=== PATIENT | female | born 1940 | race Caucasian/White ===

== ENCOUNTER 2020-02-12 12:42 | Inpatient (IN) ==
[~2020-02-12 12:42] MED LIST: TACROLIMUS ANHYDROUS 0.5 MG CAPSULE PO SCH
[2020-02-12 13:40] LABS: Hematocrit 28.7 % (37.0-47.0); Hemoglobin 8.9 gm/dL (12.5-16.0); Mean Cell Volume 81.1 fl (78-100); Mean Corpuscular Hemoglobin 25.1 pg (27-31); Mean Platelet Volume 8.9 fl (8-12.5); Neutrophil # 12.9 K/mm3 (1.3-6.0); Neutrophil % 76.2 % (42-75.0); Platelet Count 318 K/mm3 (150-450); Red Blood Count 3.54 M/mm3 (4.2-5.4); Red Cell Distribution Width 15.8 % (11.5-14.0); White Blood Count 16.9 K/mm3 (4.0-10.5)
[2020-02-12 14:01] LABS: Albumin * 2.8 gm/dl (3.4-5.0); BUN/Creatinine Ratio 17.9 (9.0-21.6); Bilirubin, Total 0.6 mg/dL (0.0-1.1); Ca. Corrected For Albumin 9.8 mg/dL (8.4-10.2); Calcium * 9.2 mg/dL (7.9-10.9); Carbon Dioxide 25.3 mmol/L (24-32.6); Potassium 4.3 mmol/L (3.4-4.6); Total Protein 7.7 gm/dL (6.2-8.2)
--- NOTE | 2020-02-12 14:22 | ERNOTE ---
Medical Problem HPI - Narrative Date of Service: 02/12/20 - General Chief Complaint: Fever Time Seen by Provider: 02/12/20 13:15 Source: patient Exam Limitations: no limitations - Immun/Allergies/Home Medications Immunizations: IMMUNIZATION HX Immunizations Up to Date Yes History of Influenza Vaccine Yes Hx Pneumococcal Vaccination Yes Allergies/Adverse Reactions: Allergies amoxicillin [Amoxicillin] Allergy (Severe, Verified 02/12/20 13:05) Hepatitis/liver failure nitrofurantoin [From Macrobid] Allergy (Verified 02/12/20 13:05) Hives nitrofurantoin macrocrystalline [From Macrobid] Allergy (Verified 02/12/20 13:05) Hives Penicillins Allergy (Verified 02/12/20 13:05) denosumab [From Prolia] Adverse Reaction (Severe, Verified 02/12/20 13:05) fever, chills Sulfa (Sulfonamide Antibiotics) Adverse Reaction (Intermediate, Verified 02/12/20 13:05) rash alendronate sodium Adverse Reaction (Unknown, Verified 02/12/20 13:05) fever Home Medications: HOME MEDICATIONS Aspirin [Aspirin Chewable] 81 mg PO DAILY 02/14/15 [Last Taken Unknown] cholecalciferol (vitamin D3) 50 mcg (2,000 unit) capsule 2,000 unit PO DAILY 05/17/18 [Last Taken Unknown] amlodipine 5 mg tablet 5 mg PO DAILY 05/10/19 [Last Taken Unknown] levothyroxine 75 mcg tablet 75 mcg PO DAILY@0700 #90 tab 07/20/19 [Last Taken Unknown] metoprolol succinate 100 mg tablet,extended release 24 hr 100 mg PO DAILY #90 tab 09/15/19 [Last Taken Unknown] everolimus (immunosuppressive) 0.5 mg tablet 0.5 mg PO BID tab 11/16/19 [Last Taken Unknown] ferrous sulfate 325 mg (65 mg iron) tablet 325 mg PO BID 11/16/19 [Last Taken Unknown] tacrolimus 0.5 mg capsule 0.5 mg PO QAM #30 cap 11/16/19 [Last Taken Unknown] ursodiol 250 mg tablet 250 mg PO TID tab 11/16/19 [Last Taken Unknown] - History of Present History Narrative: patient presents to ed with c/o fever for several days, 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 Timing: intermittent Severity: mild Modifying Factors - (Improves): Present: other - nothiing Modifying Factors - (Worsens): Present: other - nothing Review of Systems - Review of Systems Constitutional: Present: See HPI, fever, weakness, fatigue, malaise EYE: Present: no symptoms reported ENT: Present: no symptoms reported Respiratory: Present: no symptoms reported Cardiology: Present: no symptoms reported Gastrointestinal/Abdominal: Present: See HPI, diarrhea, eating less, drinking less Genitourinary: Present: no symptoms reported Musculoskeletal: Present: no symptoms reported Skin: Present: no symptoms reported Neurological: Present: no symptoms reported Endocrine: Present: no symptoms reported Hematologic/Lymphatic: Present: no symptoms reported Psych: Present: no symptoms reported All Other Systems: All systems neg except as marked Medical History (Last Reviewed 02/12/20 @ 13:06 by Eduarda Mora RN) Pyelonephritis (Acute) Biloma, extrahepatic, transplanted liver (Chronic) Immunocompromised (Chronic) Richard-Granados virus viremia (Acute) Acute cystitis (Acute) Cytomegalovirus (CMV) viremia (Chronic) Immunosuppression (Chronic) Cholestasis of transplanted liver (Resolved) Vitamin D deficiency (Chronic) Onset Date: 01/2017 Tubular adenoma of colon (Chronic) Onset Date: 01/2017 Osteoporosis (Chronic) Onset Date: 01/2017 Osteopenia (Chronic) Onset Date: Unknown Mild concentric left ventricular hypertrophy (LVH) (Chronic) Onset Date: 07/2016 Liver transplant recipient (Chronic) Onset Date: 01/2017 Iron deficiency anemia (Chronic) Onset Date: 01/2017 Hypothyroidism (Chronic) Onset Date: 01/2017 Hyperlipidemia (Chronic) Onset Date: Unknown Essential hypertension (Chronic) Onset Date: 01/2017 Diverticulosis of colon (Chronic) Onset Date: 01/2017 CKD (chronic kidney disease) stage 4, GFR 15-29 ml/min (Chronic) Onset Date: 01/2017 Cholestasis of transplanted liver (Chronic) Onset Date: 01/2017 Autoimmune hepatitis (Chronic) Onset Date: 01/2017 open liver transplant on 01/17/2015 for acute liver failure secondary to drug induced autoimmune hepatitis, complicated by bile duct stenosis fixed with Agnieszka-en-Y hepaticojejunostomy on 01/28/2015, 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 Anemia (Chronic) Onset Date: 01/2017 Allergic rhinitis (Chronic) Onset Date: 01/2014 Hypothyroidism (Chronic) Hyperlipidemia (Chronic) Fever (Acute) Surgical History: Surgical History (Last Reviewed 02/12/20 @ 13:06 by Eduarda Mora RN) Liver transplanted (Chronic) H/O cardiac catheterization Onset Date: 2011 H/O tubal ligation Onset Date: Unknown H/O tubal ligation Onset Date: Unknown History of appendectomy Onset Date: Unknown History of colon surgery Onset Date: Unknown bowel obstruction Liver transplanted Onset Date: 2014 OLT 01/17/2015 for CUSTODIAL secondary to drug induced AIH, which was complicated by bile duct stenosis, faixed with Agnieszka en Y hepaticojejunostomy on 01/01/2015 Surgical abdomen 1946 abdominal drain placement Onset Date: 03/2018 [facility] colonoscopy with biopsy Onset Date: 08/2009 tubular adenoma Family History: Family History (Last Reviewed 02/12/20 @ 13:06 by Eduarda Mora RN) Father , age 83 Asthma Gout Hypertension Myocardial infarction Lung disease Mother , age 86 Arthritis CVA (cerebral vascular accident) Diabetes Hypertension Social History: (Last Reviewed 02/12/20 @ 13:06 by Eduarda Mora RN) Social History: Marital status: current occupational status: retired Service: No Tobacco: Smoking Status: Never smoker Alcohol: alcohol intake: never Substance Use: substance use type: does not use Dietary Habits: caffeine: Yes caffeine comment: everyday Physical Exam - Physical Exam General Appearance: Present: mild distress, anxious Head Exam: Present: normal inspection, no evidence of injury Eye Exam: Normal inspection: bilateral, PERRL: bilateral, EOMI: bilateral Ears, Nose, Throat: Present: normal ENT inspection, normal pharynx Neck: Present: normal inspection, nontender Respiratory: Present: no respiratory distress, normal breath sounds, no accessory muscle use, chest nontender, lungs clear Cardiovascular/Chest: Present: regular rate, rhythm, no murmur, normal peripheral pulses Gastrointestinal/Abdominal: Present: tenderness Back Exam: Present: normal inspection, normal range of motion, no CVA tenderness, no vertebral tenderness Extremity Exam: Present: normal inspection, non-tender, normal range of motion, no edema Neurological Exam: Present: alert, oriented, normal mood/affect, no motor/sensory deficits Skin Exam: Present: normal color, warm/dry Lymphatic Exam: Present: no adenopathy Progress - Date and Time Seen: Date and Time: 02/12/20 16:46 patient unchanged, discussed results of lab and condition with dr hernandez and dr cardoza patient accepted for care at [facility] o dr ramírez accepting - Results and Orders Patient's Lab Results:: I have reviewed the patient's lab results. - Vital Signs Patient's Vital Signs:: I have reviewed the patient's vital signs. Vital Signs: Vital Signs 02/12/20 12:57 Temperature 37.3 C Pulse Rate 84 Respiratory Rate 14 Blood Pressure 123/65 O2 Sat by Pulse Oximetry 100 - EKG EKG #1 EKG: NSR - X-Ray X-Ray #1 X-Ray: chest Interpretation: Discd w/ radiologist - no acute process, abdomen no acute process - Progress/Reassessment Chief Complaint: Fever Progress:: Improved - Transfer of Care Expected Disposition: Admit Plan - Plan Plan: to admit Departure Clinical Impression: Urinary tract infection, Hypotension - Departure Disposition: Short Term Hospital Inpatient Condition: Serious Instructions: Urinary Tract Infection, Adult, [id number] Referrals: Ibis Mendiola MD [Primary Care Provider] -
[2020-02-12] MEDS ORDERED: NORMAL SALINE 1,000 ML IV ONE ×3 (15:05→17:07)
[2020-02-12 15:23] LABS: Urine Bilirubin Negative (NEGATIVE); Urine Blood 25 /ul (NEGATIVE); Urine Ketone Negative (NEGATIVE); Urine Nitrite Negative (NEGATIVE); Urine Protein 30 mg/dL (NEGATIVE); Urine Urobilinogen Normal (NORMAL); Urine pH 5.5 pH (5.0-7.0)
[2020-02-12 15:35] LABS: Urine Appearance Cloudy (CLEAR); Urine Bacteria 1+; Urine Color Yellow; Urine RBC 0-5 /hpf (0-5)
[2020-02-12] MEDS ORDERED: CIPROFLOXACIN IN 5 % DEXTROSE 400 MG/200 ML BAG IV SCH ×3 (16:00→18:45)
[2020-02-12] MEDS ORDERED: ACETAMINOPHEN 1,000 MG/100 ML BTL IV ONE (16:15)
--- NOTE | 2020-02-12 17:53 | HP ---
Chief Complaint - Chief Complaint Date of Service: 02/12/20 Time of Service: 17:23 Chief Complaint: Fever and weakness x2 days History of Present Illness: 79-year-old female with a past medical history of autoimmune hepatitis status p ost liver transplant in 2014, anemia, CKD stage IV, cholestasis of transplant and liver, hypertension, hyperlipidemia, hypothyroidism, iron deficiency anemia, osteoporosis presents from home with complaints of fever, and weakness for the past 2 days. Symptoms were associated with 2 episodes of syncope. She denies urinary frequency, abdominal pain or pain with urination. She will also noted that her blood pressure was low at home with systolic pressure in the 90s. She presented to the emergency department and was found to have leukocytosis of 16.9 thousand, temperature of 39.7 C, tachypnea of 23 abrasions per minute and positive UA. Chest x-ray was negative for any acute cardiopulmonary process, abdominal x-ray showed no acute abnormalities, and CT head showed no acute intracranial process. Her transplant team was contacted at the [facility] and they are okay with her being admitted here for a UTI rather than being transferred. Medical History (Last Reviewed 02/12/20 @ 13:06 by Eduarda Mora RN) Pyelonephritis (Acute) Biloma, extrahepatic, transplanted liver (Chronic) Immunocompromised (Chronic) Richard-Granados virus viremia (Acute) Acute cystitis (Acute) Cytomegalovirus (CMV) viremia (Chronic) Immunosuppression (Chronic) Cholestasis of transplanted liver (Resolved) Vitamin D deficiency (Chronic) Onset Date: 01/2017 Tubular adenoma of colon (Chronic) Onset Date: 01/2017 Osteoporosis (Chronic) Onset Date: 01/2017 Osteopenia (Chronic) Onset Date: Unknown Mild concentric left ventricular hypertrophy (LVH) (Chronic) Onset Date: 07/2016 Liver transplant recipient (Chronic) Onset Date: 01/2017 Iron deficiency anemia (Chronic) Onset Date: 01/2017 Hypothyroidism (Chronic) Onset Date: 01/2017 Hyperlipidemia (Chronic) Onset Date: Unknown Essential hypertension (Chronic) Onset Date: 01/2017 Diverticulosis of colon (Chronic) Onset Date: 01/2017 CKD (chronic kidney disease) stage 4, GFR 15-29 ml/min (Chronic) Onset Date: 01/2017 Cholestasis of transplanted liver (Chronic) Onset Date: 01/2017 Autoimmune hepatitis (Chronic) Onset Date: 01/2017 open liver transplant on 01/17/2015 for acute liver failure secondary to drug induced autoimmune hepatitis, complicated by bile duct stenosis fixed with Agnieszka-en-Y hepaticojejunostomy on 01/28/2015, 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 Anemia (Chronic) Onset Date: 01/2017 Allergic rhinitis (Chronic) Onset Date: 01/2014 Hypothyroidism (Chronic) Hyperlipidemia (Chronic) Fever (Acute) Surgical History: Surgical History (Last Reviewed 02/12/20 @ 13:06 by Eduarda Mora RN) Liver transplanted (Chronic) H/O cardiac catheterization Onset Date: 2011 H/O tubal ligation Onset Date: Unknown H/O tubal ligation Onset Date: Unknown History of appendectomy Onset Date: Unknown History of colon surgery Onset Date: Unknown bowel obstruction Liver transplanted Onset Date: 2014 OLT 01/17/2015 for HALFWAY secondary to drug induced AIH, which was complicated by bile duct stenosis, faixed with Agnieszka en Y hepaticojejunostomy on 01/01/2015 Surgical abdomen 1946 abdominal drain placement Onset Date: 03/2018 [facility] colonoscopy with biopsy Onset Date: 08/2009 tubular adenoma Family History: Family History (Last Reviewed 02/12/20 @ 13:06 by Eduarda Mora RN) Father , age 83 Asthma Gout Hypertension Myocardial infarction Lung disease Mother , age 86 Arthritis CVA (cerebral vascular accident) Diabetes Hypertension Social History: (Last Reviewed 02/12/20 @ 13:06 by Eduarda Mora RN) Social History: Marital status: current occupational status: retired Service: No Tobacco: Smoking Status: Never smoker Alcohol: alcohol intake: never Substance Use: substance use type: does not use Dietary Habits: caffeine: Yes caffeine comment: everyday Review Of Systems (GEN) - Review of Systems Generalized/Overall Review: Present: Weakness, Fever Respiratory: Absent: Shortness of Breath Cardiac: Absent: Chest Pain Abdominal: Absent: Nausea, Abdominal Pain Genitourinary: Absent: Frequency, Dysuria Misc: All systems neg except as marked Immunizations: IMMUNIZATION HX Immunizations Up to Date Yes History of Influenza Vaccine Yes Hx Pneumococcal Vaccination Yes Allergies/Adverse Reactions: Allergies Allergy/AdvReac Type Severity Reaction Status Date / Time amoxicillin [Amoxicillin] Allergy Severe Hepatitis/liver Verified 02/12/20 13:05 failure nitrofurantoin Allergy Hives Verified 02/12/20 13:05 [From Macrobid] nitrofurantoin Allergy Hives Verified 02/12/20 13:05 macrocrystalline [From Macrobid] Penicillins Allergy Verified 02/12/20 13:05 denosumab [From Prolia] AdvReac Severe fever, Verified 02/12/20 13:05 chills Sulfa (Sulfonamide AdvReac Intermediate rash Verified 02/12/20 13:05 Antibiotics) alendronate sodium AdvReac Unknown fever Verified 02/12/20 13:05 Home Medications: HOME MEDICATIONS Aspirin [Aspirin Chewable] 81 mg PO DAILY 02/14/15 [Last Taken Unknown] cholecalciferol (vitamin D3) 50 mcg (2,000 unit) capsule 2,000 unit PO DAILY 05/17/18 [Last Taken Unknown] amlodipine 5 mg tablet 5 mg PO DAILY 05/10/19 [Last Taken Unknown] levothyroxine 75 mcg tablet 75 mcg PO DAILY@0700 #90 tab 07/20/19 [Last Taken Unknown] metoprolol succinate 100 mg tablet,extended release 24 hr 100 mg PO DAILY #90 tab 09/15/19 [Last Taken Unknown] everolimus (immunosuppressive) 0.5 mg tablet 0.5 mg PO BID tab 11/16/19 [Last Taken Unknown] ferrous sulfate 325 mg (65 mg iron) tablet 325 mg PO BID 11/16/19 [Last Taken Unknown] tacrolimus 0.5 mg capsule 0.5 mg PO QAM #30 cap 11/16/19 [Last Taken Unknown] ursodiol 250 mg tablet 250 mg PO TID tab 11/16/19 [Last Taken Unknown] Exam - Exam Vital Signs: Vital Signs - Last Taken Temp 37.9 C 02/12/20 16:55 Pulse 92 02/12/20 17:07 Resp 26 H 02/12/20 17:07 BP 105/54 02/12/20 17:07 Pulse Ox 97 02/12/20 17:07 Constitutional: Present: Alert, Cooperative, Well developed, Well nourished, Elderly ENT Exam: Present: hearing grossly normal Eye Exam: bilateral eye: normal inspection, PERRL, EOMI Neck: Present: non-tender, supple. Absent: lymphadenopathy (R), lymphadenopathy (L) Respiratory: Present: lungs clear, no respiratory distress, no accessory muscle use, No wheezing. Absent: rhonchi Cardiovascular/Chest: Present: normal peripheral pulses, regular rate, rhythm, no edema, no murmur Peripheral Pulses: dorsalis-pedis (R): 1+, dorsalis-pedis (L): 1+ Abdomen: Present: Normal bowel sounds, soft, nontender Extremity: Present: no pedal edema Skin Exam: Present: normal color, warm/dry Neurologic: Present: alert, normal mood/affect Appearance: Present: appropriate appearance, appropriate insight Eye contact: Present: cooperative, good eye contact Thoughts: Present: normal mood /affect Diagnostic Studies: Abnormal Lab Results 02/12/20 02/12/20 02/12/20 Range/Units 13:34 13:34 13:34 WBC 16.9 H (4.0-10.5) K/mm3 RBC 3.54 L (4.2-5.4) M/mm3 Hgb 8.9 L (12.5-16.0) gm/dL Hct 28.7 L (37.0-47.0) % MCH 25.1 L (27-31) pg MCHC 31.0 L (32-36) g/dl RDW 15.8 H (11.5-14.0) % Immature Gran % (Auto) 0.60 H (0.001-0.429) % Immature Gran # (Auto) 0.10 H (0.000-0.0310) K/mm3 Neutrophils % 76.2 H (42-75.0) % Lymphocytes % 13.4 L (20-51) % Monocytes % 9.1 H (0.0-9) % Neutrophils # 12.9 H (1.3-6.0) K/mm3 Monocytes # 1.5 H (0.0-1.0) k/mm3 ESR (0-15) mm/hr Anion Gap 16.0 H (6.8-13.8) mmol/L BUN 38 H (3-23) mg/dL Creatinine 2.12 H (0.4-1.4) mg/dL Est GFR (Non-Af Amer) 24 L (60-130) mL/min Random Glucose 136 H (70-110) mg/dL ALT 7 L (19-67) U/L C-Reactive Prot, Quant 19.0 H (0.0-0.9) mg/dL Albumin 2.8 L (3.4-5.0) gm/dl Procalcitonin 2.02 H (0.05-0.50) ng/mL Urine Protein (NEGATIVE) mg/dL Urine Blood (NEGATIVE) /ul Ur Leukocyte Esterase (NEGATIVE) /ul Urine WBC (0-5) /hpf Ur Epithelial Cells (0-5) /hpf Urine Bacteria (NONE) 02/12/20 02/12/20 Range/Units 13:34 14:50 WBC (4.0-10.5) K/mm3 RBC (4.2-5.4) M/mm3 Hgb (12.5-16.0) gm/dL Hct (37.0-47.0) % MCH (27-31) pg MCHC (32-36) g/dl RDW (11.5-14.0) % Immature Gran % (Auto) (0.001-0.429) % Immature Gran # (Auto) (0.000-0.0310) K/mm3 Neutrophils % (42-75.0) % Lymphocytes % (20-51) % Monocytes % (0.0-9) % Neutrophils # (1.3-6.0) K/mm3 Monocytes # (0.0-1.0) k/mm3 ESR Greater than 120 H (0-15) mm/hr Anion Gap (6.8-13.8) mmol/L BUN (3-23) mg/dL Creatinine (0.4-1.4) mg/dL Est GFR (Non-Af Amer) (60-130) mL/min Random Glucose (70-110) mg/dL ALT (19-67) U/L C-Reactive Prot, Quant (0.0-0.9) mg/dL Albumin (3.4-5.0) gm/dl Procalcitonin (0.05-0.50) ng/mL Urine Protein 30 H (NEGATIVE) mg/dL Urine Blood 25 H (NEGATIVE) /ul Ur Leukocyte Esterase 500 H (NEGATIVE) /ul Urine WBC 10-25 H (0-5) /hpf Ur Epithelial Cells 5-10 H (0-5) /hpf Urine Bacteria 1+ H (NONE) Laboratory Results WBC 16.9 K/mm3 (4.0-10.5) H 02/12/20 13:34 RBC 3.54 M/mm3 (4.2-5.4) L 02/12/20 13:34 Hgb 8.9 gm/dL (12.5-16.0) L 02/12/20 13:34 Hct 28.7 % (37.0-47.0) L 02/12/20 13:34 MCV 81.1 fl (78-100) 02/12/20 13:34 MCH 25.1 pg (27-31) L 02/12/20 13:34 MCHC 31.0 g/dl (32-36) L 02/12/20 13:34 RDW 15.8 % (11.5-14.0) H 02/12/20 13:34 Plt Count 318 K/mm3 (150-450) 02/12/20 13:34 MPV 8.9 fl (8-12.5) 02/12/20 13:34 Immature Gran % (Auto) 0.60 % (0.001-0.429) H 02/12/20 13:34 Immature Gran # (Auto) 0.10 K/mm3 (0.000-0.0310) H 02/12/20 13:34 Neutrophils % 76.2 % (42-75.0) H 02/12/20 13:34 Lymphocytes % 13.4 % (20-51) L 02/12/20 13:34 Monocytes % 9.1 % (0.0-9) H 02/12/20 13:34 Eosinophils % 0.3 % (0.0-3.0) 02/12/20 13:34 Basophils % 0.4 % (0.0-1.0) 02/12/20 13:34 Nucleated RBC % 0.0 k/mm3 (0-1) 02/12/20 13:34 Neutrophils # 12.9 K/mm3 (1.3-6.0) H 02/12/20 13:34 Lymphocytes # 2.26 k/mm3 (1.5-3.5) 02/12/20 13:34 Monocytes # 1.5 k/mm3 (0.0-1.0) H 02/12/20 13:34 Eosinophils # 0.1 k/mm3 (0.0-0.7) 02/12/20 13:34 Absolute Basophils 0.1 k/mm3 (0.0-0.1) 02/12/20 13:34 ESR Greater than 120 mm/hr (0-15) H 02/12/20 13:34 Sodium 136 mmol/L (132-142) 02/12/20 13:34 Plasma Sodium 137 mmol/L (130-142) 02/12/20 13:34 Potassium 4.3 mmol/L (3.4-4.6) 02/12/20 13:34 Chloride 99 mmol/L (97-106) 02/12/20 13:34 Carbon Dioxide 25.3 mmol/L (24-32.6) 02/12/20 13:34 Anion Gap 16.0 mmol/L (6.8-13.8) H 02/12/20 13:34 BUN 38 mg/dL (3-23) H 02/12/20 13:34 Creatinine 2.12 mg/dL (0.4-1.4) H 02/12/20 13:34 Est GFR (Non-Af Amer) 24 mL/min (60-130) L 02/12/20 13:34 BUN/Creatinine Ratio 17.9 (9.0-21.6) 02/12/20 13:34 Random Glucose 136 mg/dL (70-110) H 02/12/20 13:34 Lactic Acid, Venous 1.0 mmol/L (0.4-2.0) 02/12/20 13:34 Calcium 9.2 mg/dL (7.9-10.9) 02/12/20 13:34 Calcium Adj for Albumin 9.8 mg/dL (8.4-10.2) 02/12/20 13:34 Total Bilirubin 0.6 mg/dL (0.0-1.1) 02/12/20 13:34 AST 21 U/L (0-48) 02/12/20 13:34 ALT 7 U/L (19-67) L 02/12/20 13:34 Alkaline Phosphatase 98 U/L (50-170) 02/12/20 13:34 C-Reactive Prot, Quant 19.0 mg/dL (0.0-0.9) H 02/12/20 13:34 Total Protein 7.7 gm/dL (6.2-8.2) 02/12/20 13:34 Albumin 2.8 gm/dl (3.4-5.0) L 02/12/20 13:34 Procalcitonin 2.02 ng/mL (0.05-0.50) H 02/12/20 13:34 Urine Color Yellow 02/12/20 14:50 Urine Appearance Cloudy (CLEAR) 02/12/20 14:50 Urine pH 5.5 pH (5.0-7.0) 02/12/20 14:50 Ur Specific [place] 1.020 SP.GR. (1.005-1.010) 02/12/20 14:50 Urine Protein 30 mg/dL (NEGATIVE) H 02/12/20 14:50 Urine Glucose (UA) Negative mg/dL (NEGATIVE) 02/12/20 14:50 Urine Ketones Negative mg/dL (NEGATIVE) 02/12/20 14:50 Urine Blood 25 /ul (NEGATIVE) H 02/12/20 14:50 Urine Nitrate Negative (NEGATIVE) 02/12/20 14:50 Urine Bilirubin Negative mg/dl (NEGATIVE) 02/12/20 14:50 Prot Sulfosalicylic Acd 1+ mg/dL (0) 02/12/20 14:50 Urine Urobilinogen Normal EU/dl (NORMAL) 02/12/20 14:50 Ur Leukocyte Esterase 500 /ul (NEGATIVE) H 02/12/20 14:50 Urine RBC 0-5 /hpf (0-5) 02/12/20 14:50 Urine WBC 10-25 /hpf (0-5) H 02/12/20 14:50 Ur Epithelial Cells 5-10 /hpf (0-5) H 02/12/20 14:50 Urine Bacteria 1+ (NONE) H 02/12/20 14:50 Urine Culture Comments Culture to follow 02/12/20 14:50 Influenza Type A Ag Negative (NEGATIVE) 02/12/20 14:05 Influenza Type B Ag Negative (NEGATIVE) 02/12/20 14:05 Group A Strep Rapid Negative (NEGATIVE) 02/12/20 14:05 Assessment/Plan - Narrative Narrative: 79-year-old female with a past medical history of autoimmune hepatitis status post liver transplant in 2014, anemia, CKD stage IV, cholestasis of transplant and liver, hypertension, hyperlipidemia, hypothyroidism, iron deficiency anemia, osteoporosis presents from home with complaints of fever, and weakness for the past 2 days. Symptoms were associated with 2 episodes of syncope. She will also noted that her blood pressure was low at home with systolic pressure in the 90s. She presented to the emergency department and was found to have leukocytosis of 16.9 thousand, temperature of 39.7 C, tachypnea of 23 abrasions per minute and positive UA. Chest x-ray was negative for any acute cardiopulmonary process, abdominal x-ray showed no acute abnormalities, and CT head showed no acute intracranial process. Her transplant team was contacted at the [facility] and they are okay with her being admitted here for a UTI rather than being transferred to the [facility]. Plan #1 continue with ciprofloxacin for UTI, day 1 #2 monitor CBC and CMP #3 resume home medications for comorbidities #4 VTE prophylaxis with Lovenox at 30 mg subcutaneously due to her low creatinine clearance. - Assessment/Plan (1) Urinary tract infection Problem: Acute (2) Fever Problem: Acute Qualifiers: (3) Weak Problem: Acute (4) Status post fall Problem: Acute (5) Biloma, extrahepatic, transplanted liver Problem: Chronic (6) Immunosuppression Problem: Chronic (7) Osteoporosis Problem: Chronic Qualifiers: (8) Hypothyroidism Problem: Chronic (9) Hyperlipidemia Problem: Chronic (10) Essential hypertension Problem: Chronic (11) CKD (chronic kidney disease) stage 4, GFR 15-29 ml/min Problem: Chronic (12) Liver transplanted Problem: Chronic (13) Anemia Problem: Chronic
[2020-02-12] MEDS ORDERED: ENOXAPARIN SODIUM 40 MG/0.4 ML SYRG SC SCH (18:00)
[2020-02-12] MEDS: FERROUS SULFATE 325 MG TABLET PO SCH (19:06)
[2020-02-12] MEDS: TACROLIMUS ANHYDROUS 0.5 MG CAPSULE PO SCH (20:41)
[2020-02-12] MEDS ORDERED: EVEROLIMUS 0.5 MG PO SCH (21:00)
[2020-02-12] MEDS ORDERED: URSODIOL 250 MG PO SCH (21:00)
[2020-02-12] MEDS: ACETAMINOPHEN 325 MG TABLET PO PRN (23:26)
[2020-02-13] MEDS ORDERED: ACETAMINOPHEN 1,000 MG/100 ML BTL IV PRN (03:26)
[2020-02-13 06:17] LABS: Hematocrit 26.7 % (37.0-47.0); Hemoglobin 8.2 gm/dL (12.5-16.0); Mean Cell Volume 82.4 fl (78-100); Mean Corpuscular Hemoglobin 25.3 pg (27-31); Mean Corpuscular Hgb Conc 30.7 g/dl (32-36); Mean Platelet Volume 9.1 fl (8-12.5); Platelet Count 289 K/mm3 (150-450); Red Blood Count 3.24 M/mm3 (4.2-5.4); Red Cell Distribution Width 15.9 % (11.5-14.0); White Blood Count 20.4 K/mm3 (4.0-10.5)
[2020-02-13 06:29] LABS: Total Cells Counted 100
[2020-02-13 06:46] LABS: Albumin * 2.4 gm/dl (3.4-5.0); Anion Gap 17.1 mmol/L (6.8-13.8); BUN/Creatinine Ratio 14.5 (9.0-21.6); Bilirubin, Total 0.4 mg/dL (0.0-1.1); Ca. Corrected For Albumin 10.2 mg/dL (8.4-10.2); Calcium * 9.2 mg/dL (7.9-10.9); Carbon Dioxide 22.8 mmol/L (24-32.6); Eosinophil 1 % (0-3); Lymphocyte 22 % (20-51); Monocyte 13 % (0-9); Neutrophil 64 % (42-75); Neutrophil # 13.1 K/mm3 (1.3-6.0); Potassium 3.9 mmol/L (3.4-4.6)
[2020-02-13 06:47] LABS: Platelet Estimate Normal (NORMAL); RBC Morphology Normal (NORMAL)
[2020-02-13] MEDS: LEVOTHYROXINE SODIUM 75 MCG TABLET PO SCH (06:57)
[2020-02-13] MEDS: ASPIRIN 81 MG TAB.CHEW PO SCH (08:58)
[2020-02-13] MEDS: amLODIPine BESYLATE 5 MG TABLET PO SCH (08:59)
[2020-02-13] MEDS: FERROUS SULFATE 325 MG TABLET PO SCH ×2 (08:59→16:18)
[2020-02-13] MEDS: EVEROLIMUS 0.5 MG PO SCH ×2 (08:59→20:06)
[2020-02-13] MEDS: TACROLIMUS ANHYDROUS 0.5 MG CAPSULE PO SCH (09:00)
[2020-02-13] MEDS ORDERED: URSODIOL 250 MG PO SCH (09:00)
[2020-02-13] MEDS ORDERED: TACROLIMUS ANHYDROUS 0.5 MG CAPSULE PO SCH (09:00)
[2020-02-13] MEDS: URSODIOL 250 MG PO SCH ×3 (09:00→16:18)
[2020-02-13] MEDS: CHOLECALCIFEROL 1,000 UNIT CAPSULE PO SCH (09:01)
[2020-02-13] MEDS: METOPROLOL SUCCINATE 100 MG TABLET.SA PO SCH (09:01)
--- NOTE | 2020-02-13 10:22 | PN ---
Subjective - Date and Time Seen Date: 02/13/20 Time: 09:48 Subjective Narrative: She continues to feel weak and has a poor appetite. She is drinking well but not eating much food. She would like to try some Ensure. She denies abdominal pain, urinary symptoms or shortness of breath. She complains of a left-sided chest wall pain secondary to the fall she sustained at home. Objective - Review of Systems Generalized/Overall Review: Reports: Chills, Fever Respiratory: Denies: Cough, Shortness of Breath Cardiac: Denies: Chest Pain, Edema Abdominal: Denies: Abdominal Pain Genitourinary Symptoms: Denies: Frequency, Dysuria Musculoskeletal Complaints: Reports: Muscle Pain - Left chest wall Misc: All systems neg except as marked - Vitals Vitals: Last Vital Signs Temp 37.4 C 02/13/20 10:03 Pulse 90 02/13/20 10:03 Resp 23 H 02/13/20 10:03 BP 164/53 H 02/13/20 10:03 Pulse Ox 97 02/13/20 10:03 - Abnormal Lab Findings Abnormal Lab Findings: Abnormal Lab Results 02/12/20 02/12/20 02/12/20 Range/Units 13:34 13:34 13:34 WBC 16.9 H (4.0-10.5) K/mm3 RBC 3.54 L (4.2-5.4) M/mm3 Hgb 8.9 L (12.5-16.0) gm/dL Hct 28.7 L (37.0-47.0) % MCH 25.1 L (27-31) pg MCHC 31.0 L (32-36) g/dl RDW 15.8 H (11.5-14.0) % Immature Gran % (Auto) 0.60 H (0.001-0.429) % Immature Gran # (Auto) 0.10 H (0.000-0.0310) K/mm3 Neutrophils % 76.2 H (42-75.0) % Lymphocytes % 13.4 L (20-51) % Monocytes % 9.1 H (0.0-9) % Monocytes % (Manual) (0-9) % Neutrophils # 12.9 H (1.3-6.0) K/mm3 Neutrophils # (Manual) (1.3-6.0) K/mm3 Lymphocytes # (Manual) (1.5-3.5) k/mm3 Monocytes # 1.5 H (0.0-1.0) k/mm3 Monocytes # (Manual) (0.0-1.0) k/mm3 ESR (0-15) mm/hr Carbon Dioxide (24-32.6) mmol/L Anion Gap 16.0 H (6.8-13.8) mmol/L BUN 38 H (3-23) mg/dL Creatinine 2.12 H (0.4-1.4) mg/dL Est GFR (Non-Af Amer) 24 L (60-130) mL/min Random Glucose 136 H (70-110) mg/dL ALT 7 L (19-67) U/L C-Reactive Prot, Quant 19.0 H (0.0-0.9) mg/dL Albumin 2.8 L (3.4-5.0) gm/dl Procalcitonin 2.02 H (0.05-0.50) ng/mL Urine Protein (NEGATIVE) mg/dL Urine Blood (NEGATIVE) /ul Ur Leukocyte Esterase (NEGATIVE) /ul Urine WBC (0-5) /hpf Ur Epithelial Cells (0-5) /hpf Urine Bacteria (NONE) 02/12/20 02/12/20 02/13/20 Range/Units 13:34 14:50 06:15 WBC 20.4 H D (4.0-10.5) K/mm3 RBC 3.24 L (4.2-5.4) M/mm3 Hgb 8.2 L (12.5-16.0) gm/dL Hct 26.7 L (37.0-47.0) % MCH 25.3 L (27-31) pg MCHC 30.7 L (32-36) g/dl RDW 15.9 H (11.5-14.0) % Immature Gran % (Auto) (0.001-0.429) % Immature Gran # (Auto) (0.000-0.0310) K/mm3 Neutrophils % (42-75.0) % Lymphocytes % (20-51) % Monocytes % (0.0-9) % Monocytes % (Manual) 13 H (0-9) % Neutrophils # (1.3-6.0) K/mm3 Neutrophils # (Manual) 13.1 H (1.3-6.0) K/mm3 Lymphocytes # (Manual) 4.5 H (1.5-3.5) k/mm3 Monocytes # (0.0-1.0) k/mm3 Monocytes # (Manual) 2.7 H (0.0-1.0) k/mm3 ESR Greater than 120 H (0-15) mm/hr Carbon Dioxide (24-32.6) mmol/L Anion Gap (6.8-13.8) mmol/L BUN (3-23) mg/dL Creatinine (0.4-1.4) mg/dL Est GFR (Non-Af Amer) (60-130) mL/min Random Glucose (70-110) mg/dL ALT (19-67) U/L C-Reactive Prot, Quant (0.0-0.9) mg/dL Albumin (3.4-5.0) gm/dl Procalcitonin (0.05-0.50) ng/mL Urine Protein 30 H (NEGATIVE) mg/dL Urine Blood 25 H (NEGATIVE) /ul Ur Leukocyte Esterase 500 H (NEGATIVE) /ul Urine WBC 10-25 H (0-5) /hpf Ur Epithelial Cells 5-10 H (0-5) /hpf Urine Bacteria 1+ H (NONE) /14/20 Range/Units 06:15 WBC (4.0-10.5) K/mm3 RBC (4.2-5.4) M/mm3 Hgb (12.5-16.0) gm/dL Hct (37.0-47.0) % MCH (27-31) pg MCHC (32-36) g/dl RDW (11.5-14.0) % Immature Gran % (Auto) (0.001-0.429) % Immature Gran # (Auto) (0.000-0.0310) K/mm3 Neutrophils % (42-75.0) % Lymphocytes % (20-51) % Monocytes % (0.0-9) % Monocytes % (Manual) (0-9) % Neutrophils # (1.3-6.0) K/mm3 Neutrophils # (Manual) (1.3-6.0) K/mm3 Lymphocytes # (Manual) (1.5-3.5) k/mm3 Monocytes # (0.0-1.0) k/mm3 Monocytes # (Manual) (0.0-1.0) k/mm3 ESR (0-15) mm/hr Carbon Dioxide 22.8 L (24-32.6) mmol/L Anion Gap 17.1 H (6.8-13.8) mmol/L BUN 28 H (3-23) mg/dL Creatinine 1.93 H (0.4-1.4) mg/dL Est GFR (Non-Af Amer) 27 L (60-130) mL/min Random Glucose 150 H (70-110) mg/dL ALT 17 L (19-67) U/L C-Reactive Prot, Quant (0.0-0.9) mg/dL Albumin 2.4 L (3.4-5.0) gm/dl Procalcitonin (0.05-0.50) ng/mL Urine Protein (NEGATIVE) mg/dL Urine Blood (NEGATIVE) /ul Ur Leukocyte Esterase (NEGATIVE) /ul Urine WBC (0-5) /hpf Ur Epithelial Cells (0-5) /hpf Urine Bacteria (NONE) - Exam Constitutional: Present: Alert, Cooperative, Well developed, Well nourished, No distress, Elderly ENT Exam: Present: hearing grossly normal Neck: Present: non-tender. Absent: lymphadenopathy (R), lymphadenopathy (L) Respiratory: Present: lungs clear, no accessory muscle use, No wheezing. Absent: crackles, rhonchi Cardiovascular/Chest: Present: normal peripheral pulses, no edema, no murmur, tachycardia Abdomen: Present: Normal bowel sounds, soft, nontender Extremity: Present: no pedal edema Skin Exam: Present: normal color, warm/dry Neurologic: Present: alert, normal mood/affect Appearance: Present: appropriate appearance, appropriate insight Eye contact: Present: cooperative Thoughts: Present: normal thought pattern, normal mood /affect Assessment/Plan Plan Narrative: 79-year-old female with a past medical history of autoimmune hepatitis status post liver transplant in 2015, anemia, CKD stage IV, cholestasis of transplant and liver, hypertension, hyperlipidemia, hypothyroidism, iron deficiency anemia, osteoporosis presents from home with complaints of fever, and weakness for the past 2 days. Symptoms were associated with 2 episodes of syncope. She will also noted that her blood pressure was low at home with systolic pressure in the 90s. She presented to the emergency department and was found to have leukocytosis of 16.9 thousand, temperature of 39.7 C, tachypnea of 23 abrasions per minute and positive UA. Chest x-ray was negative for any acute cardiopulmonary process, abdominal x-ray showed no acute abnormalities, and CT head showed no acute intracranial process. Her transplant team ([phone]) was contacted at the [facility] and they are okay with her being admitted here for a UTI rather than being transferred to the [facility]. She did spike another fever last night. White count has gone up from 16,900- 20,000. Her last urine culture was growing Klebsiella which was sensitive to the ciprofloxacin so I will continue with Cipro for now. Current urine culture is positive for gram-negative bacilli, awaiting sensitivity report, blood culture is pending. Plan #1 continue with ciprofloxacin for UTI, day 2 #2 monitor CBC and CMP #3 resume home medications for comorbidities #4 VTE prophylaxis with Lovenox at 30 mg subcutaneously due to her low creatinine clearance. #5 follow-up urine and blood cultures. #6 continue with hot and/or cold pack for her left chest wall pain. #7 continue with Tylenol as needed for fever up to 3 g daily. - Problems/Diagnosis (1) Urinary tract infection Problem: Acute (2) Fever Problem: Acute Qualifiers: (3) Weak Problem: Acute (4) Status post fall Problem: Acute (5) Biloma, extrahepatic, transplanted liver Problem: Chronic (6) Immunosuppression Problem: Chronic (7) Osteoporosis Problem: Chronic Qualifiers: (8) Hypothyroidism Problem: Chronic (9) Hyperlipidemia Problem: Chronic (10) Essential hypertension Problem: Chronic (11) CKD (chronic kidney disease) stage 4, GFR 15-29 ml/min Problem: Chronic (12) Liver transplanted Problem: Chronic (13) Anemia Problem: Chronic (14) Leukocytosis Problem: Acute
[2020-02-13] MEDS: ACETAMINOPHEN 325 MG TABLET PO PRN ×2 (14:14→20:00)
[2020-02-13] MEDS: CIPROFLOXACIN IN 5 % DEXTROSE 400 MG/200 ML BAG IV SCH (16:17)
[2020-02-13] MEDS: ENOXAPARIN SODIUM 30 MG/0.3 ML SYRG SC SCH (17:32)
[2020-02-14 06:43] LABS: Hematocrit 24.5 % (37.0-47.0); Mean Cell Volume 80.3 fl (78-100); Mean Corpuscular Hemoglobin 24.9 pg (27-31); Neutrophil # 12.3 K/mm3 (1.3-6.0); Neutrophil % 77.2 % (42-75.0); Platelet Count 284 K/mm3 (150-450); Red Blood Count 3.05 M/mm3 (4.2-5.4); Red Cell Distribution Width 15.8 % (11.5-14.0); White Blood Count 15.9 K/mm3 (4.0-10.5)
[2020-02-14] MEDS: LEVOTHYROXINE SODIUM 75 MCG TABLET PO SCH (06:49)
[2020-02-14 06:53] LABS: Albumin * 2.2 gm/dl (3.4-5.0); Anion Gap 13.9 mmol/L (6.8-13.8); BUN/Creatinine Ratio 13.6 (9.0-21.6); Bilirubin, Total 0.4 mg/dL (0.0-1.1); Ca. Corrected For Albumin 9.7 mg/dL (8.4-10.2); Calcium * 8.6 mg/dL (7.9-10.9); Carbon Dioxide 23.4 mmol/L (24-32.6); Potassium 4.3 mmol/L (3.4-4.6); Total Protein 6.5 gm/dL (6.2-8.2)
[2020-02-14 06:58] LABS: Hemoglobin 7.6 gm/dL (12.5-16.0)
[2020-02-14] MEDS: FERROUS SULFATE 325 MG TABLET PO SCH ×2 (08:24→20:46)
[2020-02-14] MEDS: CHOLECALCIFEROL 1,000 UNIT CAPSULE PO SCH (08:24)
[2020-02-14] MEDS: METOPROLOL SUCCINATE 100 MG TABLET.SA PO SCH (08:24)
[2020-02-14] MEDS: ASPIRIN 81 MG TAB.CHEW PO SCH (08:24)
[2020-02-14] MEDS: amLODIPine BESYLATE 5 MG TABLET PO SCH (08:24)
[2020-02-14] MEDS: URSODIOL 250 MG PO SCH ×3 (08:25→20:47)
[2020-02-14] MEDS: EVEROLIMUS 0.5 MG PO SCH ×2 (08:26→20:48)
[2020-02-14] MEDS: TACROLIMUS ANHYDROUS 0.5 MG CAPSULE PO SCH (08:26)
[2020-02-14] MEDS ORDERED: ACETAMINOPHEN 160 MG/5 ML UDC PO PRN (08:36)
--- NOTE | 2020-02-14 10:20 | PN ---
Subjective - Date and Time Seen Date: 02/14/20 Time: 09:53 Subjective Narrative: She notes having 3 liquid stools this morning. She did also have 3 episodes of fever within the last 24 hours. She denies nausea and vomiting. Objective - Review of Systems Generalized/Overall Review: Reports: Fever Respiratory: Denies: Shortness of Breath Cardiac: Reports: Chest Pain - Left chest wall Abdominal: Denies: Nausea, Vomiting, Abdominal Pain Genitourinary Symptoms: Denies: Frequency, Dysuria Misc: All systems neg except as marked - Vitals Vitals: Last Vital Signs Temp 37.2 C 02/14/20 07:48 Pulse 89 02/14/20 08:24 Resp 16 02/14/20 06:52 BP 121/56 02/14/20 08:24 Pulse Ox 94 02/14/20 06:52 - Abnormal Lab Findings Abnormal Lab Findings: Abnormal Lab Results 02/14/20 02/14/20 Range/Units 06:35 06:35 WBC 15.9 H D (4.0-10.5) K/mm3 RBC 3.05 L (4.2-5.4) M/mm3 Hgb 7.6 L* (12.5-16.0) gm/dL Hct 24.5 L (37.0-47.0) % MCH 24.9 L (27-31) pg MCHC 31.0 L (32-36) g/dl RDW 15.8 H (11.5-14.0) % Immature Gran % (Auto) 0.80 H (0.001-0.429) % Immature Gran # (Auto) 0.13 H (0.000-0.0310) K/mm3 Neutrophils % 77.2 H (42-75.0) % Lymphocytes % 10.4 L (20-51) % Monocytes % 9.5 H (0.0-9) % Neutrophils # 12.3 H (1.3-6.0) K/mm3 Monocytes # 1.5 H (0.0-1.0) k/mm3 Carbon Dioxide 23.4 L (24-32.6) mmol/L Anion Gap 13.9 H (6.8-13.8) mmol/L BUN 26 H (3-23) mg/dL Creatinine 1.91 H (0.4-1.4) mg/dL Est GFR (Non-Af Amer) 27 L (60-130) mL/min Random Glucose 147 H (70-110) mg/dL ALT 17 L (19-67) U/L Albumin 2.2 L (3.4-5.0) gm/dl - Exam Constitutional: Present: Alert, Cooperative, Well developed, Well nourished, No distress, Elderly ENT Exam: Present: hearing grossly normal Neck: Present: non-tender. Absent: lymphadenopathy (R), lymphadenopathy (L) Respiratory: Present: lungs clear, no respiratory distress, no accessory muscle use, No wheezing. Absent: crackles, rhonchi Cardiovascular/Chest: Present: normal peripheral pulses, regular rate, rhythm, no edema, no murmur Abdomen: Present: Normal bowel sounds, soft, nontender Extremity: Present: no pedal edema Skin Exam: Present: normal color, warm/dry Neurologic: Present: alert, normal mood/affect Appearance: Present: appropriate appearance, appropriate insight Eye contact: Present: cooperative Thoughts: Present: normal thought pattern, normal mood /affect Assessment/Plan Plan Narrative: 79-year-old female with a past medical history of autoimmune hepatitis status post liver transplant in 2015, anemia, CKD stage IV, cholestasis of transplant and liver, hypertension, hyperlipidemia, hypothyroidism, iron deficiency anemia, osteoporosis presents from home with complaints of fever, and weakness for the past 2 days. Symptoms were associated with 2 episodes of syncope. She will also noted that her blood pressure was low at home with systolic pressure in the 90s. She presented to the emergency department and was found to have leukocytosis of 16.9 thousand, temperature of 39.7 C, tachypnea of 23 abrasions per minute and positive UA. Chest x-ray was negative for any acute cardiopulmonary process, abdominal x-ray showed no acute abnormalities, and CT head showed no acute intracranial process. Her transplant team ([phone]) was contacted at the [facility] and they are okay with her being admitted here for a UTI rather than being transferred to the [facility]. She continues to have fever. White count has trended down from 20,000 to 15,000. Her urine culture is growing Klebsiella which was sensitive to the ciprofloxacin so I will continue with Cipro. I spoke with her transplant physician Dr. Garcia's and he would like me to obtain a CMV and Richard-Granados viral PCR. He is okay with continuing current management and having her stay at our facility unless she becomes unstable or fevers do not resolve. I also spoke with her infectious disease physician Dr. Waldron and he is in agreement with getting CMV and Richard-Granados viral PCR's. He also wants to rule out coronavirus due to the persistent fever and her being immunocompromised. I will obtain these test today. Dr. Waldron did want us to obtain a PET/CT and a heme/oncology consult however we do not have either at this facility and Dr. Waldron has been made aware. Dr. Waldron recommended getting an abdominal ultrasound to rule out abscess of her kidneys if her fevers persist. Dr. Garcia states she will have a PET/CT at the [facility] next week so he is okay with waiting until then. Plan #1 continue with ciprofloxacin for UTI, day 3 #2 monitor CBC and CMP #3 resume home medications for comorbidities #4 VTE prophylaxis with Lovenox at 30 mg subcutaneously due to her low creatinine clearance. #5 follow-up urine and blood cultures. #6 continue with hot and/or cold pack for her left chest wall pain. #7 continue with Tylenol as needed for fever up to 3 g daily. #8 obtain CMP and EBV PCR as well as COVID-19. - Problems/Diagnosis (1) Sepsis secondary to UTI Problem: Acute (2) Urinary tract infection Problem: Acute Qualifiers: Urinary tract infection type: acute cystitis Hematuria presence: without hematuria Qualified Code(s): N30.00 - Acute cystitis without hematuria (3) Fever Problem: Acute Qualifiers: (4) Weak Problem: Acute (5) Status post fall Problem: Acute (6) Biloma, extrahepatic, transplanted liver Problem: Chronic (7) Immunosuppression Problem: Chronic (8) Osteoporosis Problem: Chronic Qualifiers: (9) Hypothyroidism Problem: Chronic (10) Hyperlipidemia Problem: Chronic (11) Essential hypertension Problem: Chronic (12) CKD (chronic kidney disease) stage 4, GFR 15-29 ml/min Problem: Chronic (13) Liver transplanted Problem: Chronic (14) Anemia Problem: Chronic (15) Leukocytosis Problem: Acute
[2020-02-14] MEDS: CIPROFLOXACIN IN 5 % DEXTROSE 400 MG/200 ML BAG IV SCH (16:52)
[2020-02-14] MEDS: ENOXAPARIN SODIUM 30 MG/0.3 ML SYRG SC SCH (17:53)
[2020-02-14] MEDS: ONDANSETRON HCL/PF 2 MG/ML VIAL IV PRN (18:48)
[2020-02-15 06:54] LABS: Anion Gap 13.9 mmol/L (6.8-13.8); BUN/Creatinine Ratio 14.6 (9.0-21.6); Bilirubin, Total 0.4 mg/dL (0.0-1.1); Ca. Corrected For Albumin 9.6 mg/dL (8.4-10.2); Calcium * 8.3 mg/dL (7.9-10.9); Carbon Dioxide 25.6 mmol/L (24-32.6); Potassium 4.5 mmol/L (3.4-4.6); Total Protein 6.3 gm/dL (6.2-8.2)
[2020-02-15 06:58] LABS: Mean Cell Volume 80.9 fl (78-100); Mean Corpuscular Hgb Conc 30.9 g/dl (32-36); Mean Platelet Volume 9.2 fl (8-12.5); Neutrophil # 9.6 K/mm3 (1.3-6.0); Neutrophil % 68.1 % (42-75.0); Platelet Count 278 K/mm3 (150-450); Red Blood Count 2.88 M/mm3 (4.2-5.4); Red Cell Distribution Width 15.9 % (11.5-14.0); White Blood Count 14.1 K/mm3 (4.0-10.5)
[2020-02-15 07:04] LABS: Hematocrit 23.3 % (37.0-47.0); Hemoglobin 7.2 gm/dL (12.5-16.0)
[2020-02-15] MEDS: LEVOTHYROXINE SODIUM 75 MCG TABLET PO SCH (07:35)
[2020-02-15] MEDS: FERROUS SULFATE 325 MG TABLET PO SCH ×2 (09:21→17:13)
[2020-02-15] MEDS: ASPIRIN 81 MG TAB.CHEW PO SCH (09:21)
[2020-02-15] MEDS: METOPROLOL SUCCINATE 100 MG TABLET.SA PO SCH (09:23)
[2020-02-15] MEDS: amLODIPine BESYLATE 5 MG TABLET PO SCH (09:24)
[2020-02-15] MEDS: CHOLECALCIFEROL 1,000 UNIT CAPSULE PO SCH (09:24)
[2020-02-15] MEDS: EVEROLIMUS 0.5 MG PO SCH ×2 (09:25→20:03)
[2020-02-15] MEDS: URSODIOL 250 MG PO SCH ×3 (09:25→17:14)
[2020-02-15] MEDS: TACROLIMUS ANHYDROUS 0.5 MG CAPSULE PO SCH (09:26)
--- NOTE | 2020-02-15 10:12 | PN ---
Subjective - Date and Time Seen Date: 02/15/20 Time: 09:40 Subjective Narrative: She states overall she feels better. She denies any nausea or vomiting or diarrhea today. Objective - Review of Systems Generalized/Overall Review: Denies: Fever Respiratory: Denies: Shortness of Breath Cardiac: Reports: Other - Left-sided chest wall pain Abdominal: Denies: Nausea, Vomiting, Abdominal Pain, Diarrhea Genitourinary Symptoms: Denies: Dysuria Misc: All systems neg except as marked - Vitals Vitals: Last Vital Signs Temp 37.9 C 02/15/20 10:01 Pulse 86 02/15/20 10:01 Resp 18 02/15/20 10:01 BP 119/52 02/15/20 10:01 Pulse Ox 94 02/15/20 10:01 - Abnormal Lab Findings Abnormal Lab Findings: Abnormal Lab Results 02/14/20 02/15/20 02/15/20 Range/Units 06:35 06:35 06:35 WBC 14.1 H (4.0-10.5) K/mm3 RBC 2.88 L (4.2-5.4) M/mm3 Hgb 7.2 L* (12.5-16.0) gm/dL Hct 23.3 L* (37.0-47.0) % MCH 25.0 L (27-31) pg MCHC 30.9 L (32-36) g/dl RDW 15.9 H (11.5-14.0) % Immature Gran % (Auto) 1.10 H (0.001-0.429) % Immature Gran # (Auto) 0.16 H (0.000-0.0310) K/mm3 Lymphocytes % 18.6 L (20-51) % Monocytes % 10.1 H (0.0-9) % Neutrophils # 9.6 H (1.3-6.0) K/mm3 Monocytes # 1.4 H (0.0-1.0) k/mm3 Anion Gap 13.9 H (6.8-13.8) mmol/L BUN 29 H (3-23) mg/dL Creatinine 1.99 H (0.4-1.4) mg/dL Est GFR (Non-Af Amer) 26 L (60-130) mL/min ALT 15 L (19-67) U/L Albumin 2.0 L (3.4-5.0) gm/dl Procalcitonin 1.79 H (0.05-0.50) ng/mL - Exam Constitutional: Present: Alert, Cooperative, Well developed, Well nourished, No distress, Elderly ENT Exam: Present: hearing grossly normal Neck: Present: non-tender, supple. Absent: lymphadenopathy (R) Respiratory: Present: lungs clear, no respiratory distress, no accessory muscle use, No wheezing. Absent: crackles, rhonchi Cardiovascular/Chest: Present: normal peripheral pulses, regular rate, rhythm, no edema, no murmur Abdomen: Present: Normal bowel sounds, soft, nontender Extremity: Present: normal range of motion, no pedal edema Skin Exam: Present: normal color, warm/dry Neurologic: Present: alert, normal mood/affect Appearance: Present: appropriate appearance, appropriate insight Eye contact: Present: cooperative Thoughts: Present: normal thought pattern, normal mood /affect Assessment/Plan Plan Narrative: 89-year-old male past medical history of CAD, diastolic CHF, atrial fibrillation not on anticoagulation due to fall risk, chronic indwelling Parks catheter, hypertension, and hyperlipidemia presents from home with complaints of shortness of breath that has been progressively worsening for the past 1 week. Associated with worsening lower extremity swelling, and decreased appetite. He was brought to the emergency department and found to have stable vital signs, BNP of 6871, creatinine 1.53 GFR of 45. Baseline creatinine is usually between 1.2 and 1.37, baseline GFR is usually between 52 and 60. He will be admitted for CHF exacerbation and will receive IV Lasix. Urine culture is positive for Klebsiella 40,000-50,000 CFU's. Fevers have been trending down. She had a temperature of 38 C earlier this morning but no other fevers. Overall she does feel better and has no more diarrhea or vomiting today. I spoke with Dr. Chu from the [facility] with cardiology the patient's transplant team regarding her hemoglobin slowly dropping. He recommends getting a peripheral smear, LDH and haptoglobin and ruling out GI bleed with a guaiac stool. If her hemoglobin drops below 7 he would be okay with transfusing her. I have ordered these blood tests. Plan #1 continue with ciprofloxacin for UTI, day 4 #2 monitor CBC and CMP #3 resume home medications for comorbidities #4 VTE prophylaxis with Lovenox at 30 mg subcutaneously due to her low creatinine clearance. #5 Blood cultures are negative. #6 continue with hot and/or cold pack for her left chest wall pain. #7 continue with Tylenol as needed for fever up to 3 g daily. #8 CMP and EBV PCR are pending. She is negative for COVID-19. - Problems/Diagnosis (1) Sepsis secondary to UTI Problem: Acute (2) Urinary tract infection Problem: Acute Qualifiers: Urinary tract infection type: acute cystitis Hematuria presence: without hematuria Qualified Code(s): N30.00 - Acute cystitis without hematuria (3) Fever Problem: Acute Qualifiers: (4) Weak Problem: Acute (5) Status post fall Problem: Acute (6) Biloma, extrahepatic, transplanted liver Problem: Chronic (7) Immunosuppression Problem: Chronic (8) Osteoporosis Problem: Chronic Qualifiers: (9) Hypothyroidism Problem: Chronic (10) Hyperlipidemia Problem: Chronic (11) Essential hypertension Problem: Chronic (12) CKD (chronic kidney disease) stage 4, GFR 15-29 ml/min Problem: Chronic (13) Liver transplanted Problem: Chronic (14) Anemia Problem: Chronic Qualifiers: Anemia type: iron deficiency (15) Leukocytosis Problem: Acute
[2020-02-15] MEDS: CIPROFLOXACIN IN 5 % DEXTROSE 400 MG/200 ML BAG IV SCH (16:39)
[2020-02-15] MEDS: ENOXAPARIN SODIUM 30 MG/0.3 ML SYRG SC SCH (17:11)
[2020-02-15] MEDS: ONDANSETRON HCL/PF 2 MG/ML VIAL IV PRN (19:05)
[2020-02-16 07:04] LABS: Mean Cell Volume 81.3 fl (78-100); Mean Corpuscular Hgb Conc 30.8 g/dl (32-36); Mean Platelet Volume 9.6 fl (8-12.5); Neutrophil # 9.6 K/mm3 (1.3-6.0); Neutrophil % 67.7 % (42-75.0); Platelet Count 290 K/mm3 (150-450); Red Blood Count 2.88 M/mm3 (4.2-5.4); Red Cell Distribution Width 15.9 % (11.5-14.0); White Blood Count 14.2 K/mm3 (4.0-10.5)
[2020-02-16 07:11] LABS: Albumin * 1.9 gm/dl (3.4-5.0); Anion Gap 13.7 mmol/L (6.8-13.8); BUN/Creatinine Ratio 14.3 (9.0-21.6); Bilirubin, Total 0.4 mg/dL (0.0-1.1); Ca. Corrected For Albumin 9.8 mg/dL (8.4-10.2); Calcium * 8.4 mg/dL (7.9-10.9); Potassium 4.7 mmol/L (3.4-4.6); Total Protein 6.5 gm/dL (6.2-8.2)
[2020-02-16] MEDS: LEVOTHYROXINE SODIUM 75 MCG TABLET PO SCH (07:11)
[2020-02-16 07:12] LABS: Hematocrit 23.4 % (37.0-47.0); Hemoglobin 7.2 gm/dL (12.5-16.0)
[2020-02-16] MEDS: CHOLECALCIFEROL 1,000 UNIT CAPSULE PO SCH (08:36)
[2020-02-16] MEDS: METOPROLOL SUCCINATE 100 MG TABLET.SA PO SCH (08:36)
[2020-02-16] MEDS: TACROLIMUS ANHYDROUS 0.5 MG CAPSULE PO SCH (08:36)
[2020-02-16] MEDS: amLODIPine BESYLATE 5 MG TABLET PO SCH (08:37)
[2020-02-16] MEDS: ASPIRIN 81 MG TAB.CHEW PO SCH (08:37)
[2020-02-16] MEDS: FERROUS SULFATE 325 MG TABLET PO SCH ×2 (08:37→17:06)
[2020-02-16] MEDS: EVEROLIMUS 0.5 MG PO SCH ×2 (08:38→20:29)
[2020-02-16] MEDS: URSODIOL 250 MG PO SCH ×3 (08:39→17:06)
--- NOTE | 2020-02-16 11:27 | PN ---
Subjective - Date and Time Seen Date: 02/16/20 Time: 09:55 Subjective Narrative: She continues to have fever, poor appetite, and weakness. Objective - Review of Systems Generalized/Overall Review: Reports: Weakness, Fever Respiratory: Denies: Shortness of Breath Cardiac: Denies: Chest Pain Abdominal: Reports: Nausea, Abdominal Pain. Denies: Vomiting Misc: All systems neg except as marked - Vitals Vitals: Last Vital Signs Temp 37.6 C 02/16/20 10:39 Pulse 83 02/16/20 10:39 Resp 16 02/16/20 10:39 BP 116/54 02/16/20 10:39 Pulse Ox 96 02/16/20 10:39 - Abnormal Lab Findings Abnormal Lab Findings: Abnormal Lab Results 02/16/20 02/16/20 02/16/20 Range/Units 06:30 06:35 06:35 WBC 14.2 H (4.0-10.5) K/mm3 RBC 2.88 L (4.2-5.4) M/mm3 Hgb 7.2 L* (12.5-16.0) gm/dL Hct 23.4 L* (37.0-47.0) % MCH 25.0 L (27-31) pg MCHC 30.8 L (32-36) g/dl RDW 15.9 H (11.5-14.0) % Immature Gran % (Auto) 1.20 H (0.001-0.429) % Immature Gran # (Auto) 0.17 H (0.000-0.0310) K/mm3 Lymphocytes % 18.7 L (20-51) % Monocytes % 9.9 H (0.0-9) % Neutrophils # 9.6 H (1.3-6.0) K/mm3 Monocytes # 1.4 H (0.0-1.0) k/mm3 Immature Retic Fraction 21.1 H (3.0-15.9) % Retic Hgb Content 25.0 L (29-35) pg Potassium 4.7 H (3.4-4.6) mmol/L BUN 33 H (3-23) mg/dL Creatinine 2.31 H (0.4-1.4) mg/dL Est GFR (Non-Af Amer) 22 L (60-130) mL/min ALT 14 L (19-67) U/L Albumin 1.9 L (3.4-5.0) gm/dl - Exam Constitutional: Present: Alert, Cooperative, Well developed, Well nourished, No distress, Elderly ENT Exam: Present: hearing grossly normal Neck: Present: non-tender, supple. Absent: lymphadenopathy (R), lymphadenopathy (L) Respiratory: Present: no respiratory distress, no accessory muscle use, crackles - Mild crackles in bilateral bases, No wheezing Cardiovascular/Chest: Present: regular rate, rhythm, no edema, no murmur Abdomen: Present: Normal bowel sounds, soft, nontender Extremity: Present: no pedal edema Skin Exam: Present: normal color, warm/dry Neurologic: Present: alert, normal mood/affect Appearance: Present: appropriate appearance, appropriate insight Eye contact: Present: cooperative Thoughts: Present: normal thought pattern, normal mood /affect Assessment/Plan Plan Narrative: 79-year-old female with a past medical history of autoimmune hepatitis status post liver transplant in 2015, anemia, CKD stage IV, cholestasis of transplant and liver, hypertension, hyperlipidemia, hypothyroidism, iron deficiency anemia, osteoporosis presents from home with complaints of fever, and weakness for the past 2 days. Symptoms were associated with 2 episodes of syncope. She will also noted that her blood pressure was low at home with systolic pressure in the 90s. She presented to the emergency department and was found to have leukocytosis of 16.9 thousand, temperature of 39.7 C, tachypnea of 23 abrasions per minute and positive UA. Chest x-ray was negative for any acute cardiopulmonary process, abdominal x-ray showed no acute abnormalities, and CT head showed no acute intracranial process. Her transplant team ([phone]) was contacted at the [facility] and they are okay with her being admitted here for a UTI rather than being transferred to the [facility]. She continues to have fever. White count has trended down from 20,000 to 14,000. Her urine culture is growing Klebsiella which was sensitive to the ciprofloxacin so I will continue with Cipro. I spoke with her transplant physician Dr. Garcia's ([phone]) and he would like me to obtain a CMV and Richard-Granados viral PCR. He is okay with continuing current management and having her stay at our facility unless she becomes unstable or fevers do not resolve. I also spoke with her infectious disease physician Dr. Waldron and he is in agreement with getting CMV and Richard-Granados viral PCR's. He also wants to rule out coronavirus due to the persistent fever and her being immunocompromised. I will obtain these test today. Dr. Waldron ([phone]) did want us to obtain a PET/CT and a heme/oncology consult however we do not have either at this facility and Dr. Waldron has been made aware. Dr. Waldron recommended getting an abdominal ultrasound to rule out abscess of her kidneys if her fevers persist. Dr. Garcia states she will have a PET/CT at the [facility] next week so he is okay with waiting until then. Per discussion with her infectious disease physician Dr. Waldron, he would like to rule out post transplant lymphoproliferative disorder and obtain a CT chest/abdomen/pelvis today. He states that if there is hepatosplenomegaly or lymphadenopathy he would think this is the source of her fevers and would discuss decreasing immunosuppressive medications with the transplant team. I am still waiting for a call back from her transplant team Dr. Chu. I left a message for him to call me back regarding the current plan. CT abdomen pelvis is positive for a 4 cm lesion in the liver. I will order an ultrasound to further assess the characteristics of the lesion and to rule out abscess. Study is suboptimal because the patient did not receive IV contrast secondary to CKD 4. CT chest was negative for lymphadenopathy. Results have been discussed with Dr. Waldron her infectious disease physician. Dr. Chu from her transplant team would like repeat blood cultures I will order these for the morning. Plan #1 I will complete her last dose of ciprofloxacin today for UTI, day 5 #2 monitor CBC and CMP #3 Continue home medications for comorbidities #4 VTE prophylaxis with Lovenox at 30 mg subcutaneously due to her low creatinine clearance. #5 Repeat blood cultures. #6 continue with hot and/or cold pack for her left chest wall pain. #7 continue with Tylenol as needed for fever up to 3 g daily. #[address] chest/abdomen/pelvis today - Problems/Diagnosis (1) Liver lesion, right lobe transplanted liver Problem: Acute (2) Sepsis secondary to UTI Problem: Acute (3) Urinary tract infection Problem: Acute Qualifiers: Urinary tract infection type: acute cystitis Hematuria presence: without hematuria Qualified Code(s): N30.00 - Acute cystitis without hematuria (4) Fever Problem: Acute Qualifiers: (5) Weak Problem: Acute (6) Status post fall Problem: Acute (7) Immunosuppression Problem: Chronic (8) Osteoporosis Problem: Chronic Qualifiers: (9) Hypothyroidism Problem: Chronic (10) Hyperlipidemia Problem: Chronic (11) Essential hypertension Problem: Chronic (12) CKD (chronic kidney disease) stage 4, GFR 15-29 ml/min Problem: Chronic (13) Liver transplanted Problem: Chronic (14) Anemia Problem: Chronic Qualifiers: Anemia type: iron deficiency (15) Leukocytosis Problem: Acute
[2020-02-16] MEDS: CIPROFLOXACIN IN 5 % DEXTROSE 400 MG/200 ML BAG IV SCH (17:06)
[2020-02-16] MEDS: ENOXAPARIN SODIUM 30 MG/0.3 ML SYRG SC SCH (17:13)
[2020-02-16] MEDS: ONDANSETRON HCL/PF 2 MG/ML VIAL IV PRN (18:25)
[2020-02-16] MEDS: metroNIDAZOLE/SODIUM CHLORIDE 500 MG/100 ML BAG IV SCH (19:26)
[2020-02-17] MEDS: metroNIDAZOLE/SODIUM CHLORIDE 500 MG/100 ML BAG IV SCH ×2 (02:38→10:32)
[2020-02-17 06:01] LABS: Mean Cell Volume 80.7 fl (78-100); Mean Corpuscular Hemoglobin 25.2 pg (27-31); Mean Corpuscular Hgb Conc 31.2 g/dl (32-36); Mean Platelet Volume 9.2 fl (8-12.5); Platelet Count 277 K/mm3 (150-450); Red Cell Distribution Width 15.9 % (11.5-14.0)
[2020-02-17 06:08] LABS: Hematocrit 21.8 % (37.0-47.0); Hemoglobin 6.8 gm/dL (12.5-16.0)
[2020-02-17 06:09] LABS: Total Cells Counted 100
[2020-02-17 06:15] LABS: Eosinophil 2 % (0-3); Lymphocyte 19 % (20-51); Monocyte 4 % (0-9); Neutrophil 75 % (42-75); Neutrophil # 11.3 K/mm3 (1.3-6.0)
[2020-02-17 06:16] LABS: Albumin * 2.1 gm/dl (3.4-5.0); Anion Gap 13.9 mmol/L (6.8-13.8); BUN/Creatinine Ratio 15.4 (9.0-21.6); Bilirubin, Total 0.4 mg/dL (0.0-1.1); Ca. Corrected For Albumin 9.5 mg/dL (8.4-10.2); Calcium * 8.3 mg/dL (7.9-10.9); Carbon Dioxide 24.9 mmol/L (24-32.6); Microcytosis 2+; Platelet Estimate Normal (NORMAL); Potassium 4.8 mmol/L (3.4-4.6); Total Protein 6.5 gm/dL (6.2-8.2)
[2020-02-17] MEDS: LEVOTHYROXINE SODIUM 75 MCG TABLET PO SCH (07:03)
[2020-02-17] MEDS: URSODIOL 250 MG PO SCH ×2 (08:39→13:43)
[2020-02-17] MEDS: EVEROLIMUS 0.5 MG PO SCH (08:39)
[2020-02-17] MEDS: TACROLIMUS ANHYDROUS 0.5 MG CAPSULE PO SCH (08:42)
[2020-02-17] MEDS: CHOLECALCIFEROL 1,000 UNIT CAPSULE PO SCH (08:43)
[2020-02-17] MEDS: FERROUS SULFATE 325 MG TABLET PO SCH (08:43)
[2020-02-17] MEDS: ASPIRIN 81 MG TAB.CHEW PO SCH (08:44)
[2020-02-17] MEDS: amLODIPine BESYLATE 5 MG TABLET PO SCH (08:44)
[2020-02-17] MEDS: METOPROLOL SUCCINATE 100 MG TABLET.SA PO SCH (08:45)
--- NOTE | 2020-02-17 12:31 | DS ---
Date of Discharge:: 02/17/20 Results and Findings: Pending Mircobiology Results 02/12/20 14:04 Blood Blood Culture - Preliminary NO GROWTH AFTER 48 HOURS 02/12/20 13:34 Blood Blood Culture - Preliminary NO GROWTH AFTER 48 HOURS Lab Pending Results 02/12/20 13:34: WBC 16.9 H, RBC 3.54 L, Hgb 8.9 L, Hct 28.7 L, MCV 81.1, MCH 25.1 L, MCHC 31.0 L, RDW 15.8 H, Plt Count 318, MPV 8.9, Immature Gran % (Auto) 0.60 H, Immature Gran # (Auto) 0.10 H, Neutrophils % 76.2 H, Lymphocytes % 13.4 L, Monocytes % 9.1 H, Eosinophils % 0.3, Basophils % 0.4, Nucleated RBC % 0.0, Neutrophils # 12.9 H, Lymphocytes # 2.26, Monocytes # 1.5 H, Eosinophils # 0.1, Absolute Basophils 0.1 02/12/20 13:34: Sodium 136, Plasma Sodium 137, Potassium 4.3, Chloride 99, Carbon Dioxide 25.3, Anion Gap 16.0 H, BUN 38 H, Creatinine 2.12 H, Est GFR (Non-Af Amer) 24 L, BUN/Creatinine Ratio 17.9, Random Glucose 136 H, Calcium 9.2, Calcium Adj for Albumin 9.8, Total Bilirubin 0.6, AST 21, ALT 7 L, Alkaline Phosphatase 98, C-Reactive Prot, Quant 19.0 H, Total Protein 7.7, Albumin 2.8 L 02/12/20 13:34: Lactic Acid, Venous 1.0 02/12/20 13:34: Procalcitonin 2.02 H 02/12/20 13:34: ESR Greater than 120 H 02/12/20 14:05: Influenza Type A Ag Negative, Influenza Type B Ag Negative 02/12/20 14:05: Group A Strep Rapid Negative 02/12/20 14:50: Urine Color Yellow, Urine Appearance Cloudy, Urine pH 5.5, Ur Specific [place] 1.020, Urine Protein 30 H, Urine Glucose (UA) Negative, Urine Ketones Negative, Urine Blood 25 H, Urine Nitrate Negative, Urine Bilirubin Negative, Prot Sulfosalicylic Acd 1+, Urine Urobilinogen Normal, Ur Leukocyte Esterase 500 H, Urine RBC 0-5, Urine WBC 10-25 H, Ur Epithelial Cells 5-10 H, Urine Bacteria 1+ H, Urine Culture Comments Culture to follow 02/13/20 06:15: WBC 20.4 H D, RBC 3.24 L, Hgb 8.2 L, Hct 26.7 L, MCV 82.4, MCH 25.3 L, MCHC 30.7 L, RDW 15.9 H, Plt Count 289, MPV 9.1, Neutrophils % (Manual) 64, Lymphocytes % (Manual) 22, Monocytes % (Manual) 13 H, Eosinophils % (Manual) 1, Neutrophils # (Manual) 13.1 H, Lymphocytes # (Manual) 4.5 H, Monocytes # (Manual) 2.7 H, Eosinophils # (Manual) 0.2, Platelet Estimate Normal, RBC Morphology Normal 02/13/20 06:15: Sodium 139, Plasma Sodium 140, Potassium 3.9, Chloride 103, Carbon Dioxide 22.8 L, Anion Gap 17.1 H, BUN 28 H, Creatinine 1.93 H, Est GFR (Non-Af Amer) 27 L, BUN/Creatinine Ratio 14.5, Random Glucose 150 H, Calcium 9.2, Calcium Adj for Albumin 10.2, Total Bilirubin 0.4, AST 21, ALT 17 L, Alkaline Phosphatase 94, Total Protein 7.0, Albumin 2.4 L 02/14/20 06:35: WBC 15.9 H D, RBC 3.05 L, Hgb 7.6 L*, Hct 24.5 L, MCV 80.3, MCH 24.9 L, MCHC 31.0 L, RDW 15.8 H, Plt Count 284, MPV 9.0, Immature Gran % (Auto) 0.80 H, Immature Gran # (Auto) 0.13 H, Neutrophils % 77.2 H, Lymphocytes % 10.4 L, Monocytes % 9.5 H, Eosinophils % 1.9, Basophils % 0.2, Nucleated RBC % 0.0, Neutrophils # 12.3 H, Lymphocytes # 1.66, Monocytes # 1.5 H, Eosinophils # 0.3, Absolute Basophils 0.0 02/14/20 06:35: Sodium 133, Plasma Sodium 134, Potassium 4.3, Chloride 100, Carbon Dioxide 23.4 L, Anion Gap 13.9 H, BUN 26 H, Creatinine 1.91 H, Est GFR (Non-Af Amer) 27 L, BUN/Creatinine Ratio 13.6, Random Glucose 147 H, Calcium 8.6, Calcium Adj for Albumin 9.7, Total Bilirubin 0.4, AST 21, ALT 17 L, Alkaline Phosphatase 94, Total Protein 6.5, Albumin 2.2 L 02/14/20 06:35: Procalcitonin 1.79 H 02/14/20 12:00: SARS-CoV-2 (PCR) Not detected 02/15/20 06:30: Lactate Dehydrogenase 182 02/15/20 06:35: WBC 14.1 H, RBC 2.88 L, Hgb 7.2 L*, Hct 23.3 L*, MCV 80.9, MCH 25.0 L, MCHC 30.9 L, RDW 15.9 H, Plt Count 278, MPV 9.2, Immature Gran % (Auto) 1.10 H, Immature Gran # (Auto) 0.16 H, Neutrophils % 68.1, Lymphocytes % 18.6 L, Monocytes % 10.1 H, Eosinophils % 1.9, Basophils % 0.2, Nucleated RBC % 0.0, Neutrophils # 9.6 H, Lymphocytes # 2.62, Monocytes # 1.4 H, Eosinophils # 0.3, Absolute Basophils 0.0 02/15/20 06:35: Sodium 134, Plasma Sodium 134, Potassium 4.5, Chloride 99, Carbon Dioxide 25.6, Anion Gap 13.9 H, BUN 29 H, Creatinine 1.99 H, Est GFR (Non-Af Amer) 26 L, BUN/Creatinine Ratio 14.6, Random Glucose 100 D, Calcium 8.3, Calcium Adj for Albumin 9.6, Total Bilirubin 0.4, AST 17, ALT 15 L, Alkaline Phosphatase 86, Total Protein 6.3, Albumin 2.0 L 02/15/20 06:35: Peripheral Blood Smear Smear sent to path. 02/16/20 06:30: WBC 14.2 H, RBC 2.88 L, Hgb 7.2 L*, Hct 23.4 L*, MCV 81.3, MCH 25.0 L, MCHC 30.8 L, RDW 15.9 H, Plt Count 290, MPV 9.6, Immature Gran % (Auto) 1.20 H, Immature Gran # (Auto) 0.17 H, Neutrophils % 67.7, Lymphocytes % 18.7 L, Monocytes % 9.9 H, Eosinophils % 2.3, Basophils % 0.2, Nucleated RBC % 0.0, Neutrophils # 9.6 H, Lymphocytes # 2.66, Monocytes # 1.4 H, Eosinophils # 0.3, Absolute Basophils 0.0 02/16/20 06:35: Sodium 132, Plasma Sodium 132, Potassium 4.7 H, Chloride 98, Carbon Dioxide 25.0, Anion Gap 13.7, BUN 33 H, Creatinine 2.31 H, Est GFR (Non- Af Amer) 22 L, BUN/Creatinine Ratio 14.3, Random Glucose 100, Calcium 8.4, Calcium Adj for Albumin 9.8, Total Bilirubin 0.4, AST 18, ALT 14 L, Alkaline Phosphatase 88, Total Protein 6.5, Albumin 1.9 L 02/16/20 06:35: Absolute Retic 0.0295, Percent Retic 1.0, Immature Retic Fractio n 21.1 H, Retic Hgb Content 25.0 L 02/17/20 05:55: WBC 15.0 H, RBC 2.70 L, Hgb 6.8 L*, Hct 21.8 L*, MCV 80.7, MCH 25.2 L, MCHC 31.2 L, RDW 15.9 H, Plt Count 277, MPV 9.2, Neutrophils % (Manual) 75, Lymphocytes % (Manual) 19 L, Monocytes % (Manual) 4, Eosinophils % (Manual) 2, Neutrophils # (Manual) 11.3 H, Lymphocytes # (Manual) 2.9, Monocytes # (Manual) 0.6, Eosinophils # (Manual) 0.3, Platelet Estimate Normal, Microcytosis 2+ 02/17/20 05:55: Sodium 131 L, Plasma Sodium 131, Potassium 4.8 H, Chloride 97, Carbon Dioxide 24.9, Anion Gap 13.9 H, BUN 37 H, Creatinine 2.40 H, Est GFR (Non-Af Amer) 21 L, BUN/Creatinine Ratio 15.4, Random Glucose 101, Calcium 8.3, Calcium Adj for Albumin 9.5, Total Bilirubin 0.4, AST 20, ALT 14 L, Alkaline Phosphatase 91, Total Protein 6.5, Albumin 2.1 L 02/17/20 07:15: Blood Type O Positive, Antibody Screen Negative, Crossmatch See Detail Disposition: Home self-care Condition: Serious Problem Oriented Discharge Instructions to Patient/Family: Urinary Tract Infection, Adult, [id number] Complete Home Medications List: Complete Home Medication List: Aspirin [Aspirin Chewable] 81 mg PO DAILY 02/14/15 cholecalciferol (vitamin D3) 50 mcg (2,000 unit) capsule 2,000 unit PO DAILY 05/17/18 amlodipine 5 mg tablet 5 mg PO DAILY 05/10/19 levothyroxine 75 mcg tablet 75 mcg PO DAILY@0700 #90 tab 07/20/19 metoprolol succinate 100 mg tablet,extended release 24 hr 100 mg PO DAILY #90 tab 09/15/19 everolimus (immunosuppressive) 0.5 mg tablet 0.5 mg PO BID tab 11/16/19 ferrous sulfate 325 mg (65 mg iron) tablet 325 mg PO BID 11/16/19 tacrolimus 0.5 mg capsule 0.5 mg PO QAM #30 cap 11/16/19 ursodiol 250 mg tablet 250 mg PO TID tab 11/16/19
--- NOTE | 2020-02-17 12:35 | DS ---
Transfer Discharge Summary - Diagnosis(s)/Problems (1) Liver lesion, right lobe transplanted liver Problem: Acute (2) Sepsis secondary to UTI Problem: Acute (3) Status post fall Problem: Acute (4) Urinary tract infection Problem: Acute (5) Fever Problem: Acute (6) Anemia Problem: Chronic (7) Biloma, extrahepatic, transplanted liver Problem: Chronic (8) CKD (chronic kidney disease) stage 4, GFR 15-29 ml/min Problem: Chronic (9) Hyperlipidemia Problem: Chronic (10) Hypothyroidism Problem: Chronic (11) Immunocompromised Problem: Chronic (12) Immunosuppression Problem: Chronic (13) Liver transplant recipient Problem: Chronic (14) Osteoporosis Problem: Chronic - Course Description of Stay: 79-year-old female admitted to [facility] for the management of a UTI, persistent fever, anemia, recent fall, and a possible hepatic abscess/lesion detected on Abdominal Ct. She was evaluated at bedside this morning and was found to be afebrile and in no acute distress. Patient has been treated with antibiotics since admission however her fever continues to recur. Given her history of liver transplantation and her clinical presentation, decision to evaluate her abdomen with imaging was made. Abdominal CT revealed a cystic lesion in her liver that appeared to be either an abscess or lesion. Transplant team at the [facility] where the patient received her liver was contacted, and they agreed to have the patient transferred for possible surgical drainage of the abscess in order to resolve the infection. However this morning the patient's hemoglobin dropped to 6.8, so decision to transfuse before transfer was made. She is tolerating the transfusion without any issues and denies any new concerns. Patient will be transferred in ambulance to the [facility] for further management after transfusion of 1 unit of PRBC. Procedures Performed: none - Results and Findings Results and Findings: Laboratory Results - last 24 hr 02/17/20 02/17/20 02/17/20 05:55 05:55 07:15 WBC 15.0 H RBC 2.70 L Hgb 6.8 L* Hct 21.8 L* MCV 80.7 MCH 25.2 L MCHC 31.2 L RDW 15.9 H Plt Count 277 MPV 9.2 Neutrophils % (Manual) 75 Lymphocytes % (Manual) 19 L Monocytes % (Manual) 4 Eosinophils % (Manual) 2 Neutrophils # (Manual) 11.3 H Lymphocytes # (Manual) 2.9 Monocytes # (Manual) 0.6 Eosinophils # (Manual) 0.3 Platelet Estimate Normal Microcytosis 2+ Sodium 131 L Plasma Sodium 131 Potassium 4.8 H Chloride 97 Carbon Dioxide 24.9 Anion Gap 13.9 H BUN 37 H Creatinine 2.40 H Est GFR (Non-Af Amer) 21 L BUN/Creatinine Ratio 15.4 Random Glucose 101 Calcium 8.3 Calcium Adj for Albumin 9.5 Total Bilirubin 0.4 AST 20 ALT 14 L Alkaline Phosphatase 91 Total Protein 6.5 Albumin 2.1 L Blood Type O Positive Antibody Screen Negative Crossmatch See Detail - Medications Medications: Active Medications Amlodipine Besylate (Norvasc) 5 mg PO DAILY [facility] Stop: 03/14/20 09:01 Last Admin: 02/17/20 08:44 Dose: 5 mg Documented by: Aspirin (Aspirin Chewable) 81 mg PO DAILY KENZIE Stop: 03/14/20 09:01 Last Admin: 02/17/20 08:44 Dose: 81 mg Documented by: Cholecalciferol (Vitamin D) 2,000 unit PO DAILY KENZIE Stop: 03/14/20 09:01 Last Admin: 02/17/20 08:43 Dose: 2,000 unit Documented by: Enoxaparin Sodium (Lovenox) 30 mg SC Q24H [facility]ZIE Stop: 03/13/20 18:01 Last Admin: 02/16/20 17:13 Dose: Not Given Documented by: Ferrous Sulfate (Ferrous Sulfate) 325 mg PO BIDWM KENZIE Stop: 03/13/20 18:46 Last Admin: 02/17/20 08:43 Dose: 325 mg Documented by: Ciprofloxacin/Dextrose (Cipro) 400 mg in 200 mls @ 200 mls/hr IV Q24H [facility]; Protocol Stop: 03/14/20 17:01 Last Infusion: 02/16/20 18:06 Dose: Infused Documented by: Metronidazole (Flagyl) 500 mg in 100 mls @ 100 mls/hr IV Q8H [facility]; Protocol Stop: 03/17/20 18:31 Last Infusion: 02/17/20 11:34 Dose: Infused Documented by: Levothyroxine Sodium (Synthroid) 75 mcg PO DAILY@0700 [facility] Stop: 03/14/20 07:01 Last Admin: 02/17/20 07:03 Dose: 75 mcg Documented by: Metoprolol Succinate (Toprol Xl) 100 mg PO DAILY [facility] Stop: 03/14/20 09:01 Last Admin: 02/17/20 08:45 Dose: 100 mg Documented by: Ondansetron HCl (Zofran) 4 mg IV Q8H PRN PRN Reason: Nausea And Vomiting Stop: 03/15/20 17:56 Last Admin: 02/16/20 18:25 Dose: 4 mg Documented by: Patient's Own Med - (Ursodiol 250 Mg Tab) 1 dose PO TID [facility] Stop: 03/13/20 21:01 Last Admin: 02/17/20 08:39 Dose: 1 dose Documented by: Patient's Own Med - Everolimus [Zortress ] 0.5 Mg Tab 1 dose PO BID [facility] Stop: 03/13/20 21:01 Last Admin: 02/17/20 08:39 Dose: 1 dose Documented by: Tacrolimus (Prograf) 0.5 mg PO QAM [facility] Stop: 03/13/20 20:31 Last Admin: 02/17/20 08:42 Dose: 0.5 mg Documented by: Discontinued Medications Acetaminophen (Tylenol) 650 mg PO Q4H PRN PRN Reason: Pain/Fever Stop: 03/13/20 23:18 Last Admin: 02/13/20 20:00 Dose: 650 mg Documented by: Enoxaparin Sodium (Lovenox) 30 mg SC Q24H [facility] Stop: 03/13/20 18:01 Last Admin: 02/12/20 19:06 Dose: 30 mg Documented by: Sodium Chloride (Sodium Chloride 0.9%) 1,000 mls @ 999 mls/hr IV .Q1H1M ONE Stop: 02/12/20 16:05 Last Infusion: 02/12/20 16:26 Dose: Infused Documented by: Ciprofloxacin/Dextrose (Cipro) 400 mg in 200 mls @ 200 mls/hr IV Q12H [facility]; Protocol Stop: 03/13/20 16:01 Last Infusion: 02/12/20 17:42 Dose: Infused Documented by: Acetaminophen (Ofirmev) 1,000 mg in 100 mls @ 400 mls/hr IV ONCE ONE Stop: 02/12/20 16:29 Last Infusion: 02/12/20 16:43 Dose: Infused Documented by: Sodium Chloride (Sodium Chloride 0.9%) 1,000 mls @ 999 mls/hr IV .Q1H1M ONE Stop: 02/12/20 17:56 Last Infusion: 02/12/20 18:05 Dose: Infused Documented by: Sodium Chloride (Sodium Chloride 0.9%) 1,000 mls @ 999 mls/hr IV .Q1H1M ONE Stop: 02/12/20 18:07 Last Infusion: 02/12/20 19:11 Dose: Infused Documented by: Patient's Own Med - Everolimus [Zortress ] 0.5 Mg Tab 1 dose PO BID [facility] Stop: 03/13/20 21:01 Last Admin: 02/12/20 20:41 Dose: 1 dose Documented by: Patient's Own Med - (Ursodiol 250 Mg Tab) 1 dose PO TID [facility] Stop: 03/13/20 21:01 Last Admin: 02/12/20 20:42 Dose: 1 dose Documented by: - Disposition Disposition: Short Term Hospital Inpatient Condition: Stable Discharge Date: 02/17/20 Discharge Time: 13:09
[2020-02-17 16:04] LABS: Haptoglobin 473 mg/dL (43-212)
[2020-02-17 16:36] VITALS: BP 126/55
[2020-02-19 11:53] LABS: CMV Real Time PCR <200 IU/mL
== END 2020-02-17 16:20 | disposition short-term general hospital (02) | DRG 871 ==
LOC: ER 12:42 → MS 16:48
PROVIDERS: ADMIT Internal Medicine; ATTEND Internal Medicine
DX: N18.4 Chronic kidney disease, stage 4 (severe); K75.4 Autoimmune hepatitis; I95.9 Hypotension, unspecified; N39.0 Urinary tract infection, site not specified; Z20.828 Contact with and (suspected) exposure to other viral communicable diseases; B96.89 Other specified bacterial agents as the cause of diseases classified elsewhere; E03.9 Hypothyroidism, unspecified; M81.0 Age-related osteoporosis without current pathological fracture; K83.1 Obstruction of bile duct; D63.1 Anemia in chronic kidney disease; Z94.4 Liver transplant status; R93.5 Abnormal findings on diagnostic imaging of other abdominal regions, including retroperitoneum; A41.89 Other specified sepsis
CPT/HCPCS: 36415; 70450; 71020; 71046; 71250; 74019; 74020; 74176; 76705; 80053; 81001; 82272; 83010; 83605; 83615; 84145; 85007; 85025; 85045; 85652; 86140; 86850; 87040; 87077; 87081; 87086; 87186; 87400; 87430; 87449; 87497; 87799; 88321; 96365; 96367; 99285; J0131; J2405; P9016